=== PATIENT | female | born 1965 | race Caucasian/White ===

== ENCOUNTER 2018-05-30 11:24 | Emergency (ER) | payer OTHER ==
[~2018-05-30] VITALS: Ht 165.1 cm; Wt 64.0 kg
[~2018-05-30 11:24] MED LIST: PROZAC40 MG PO; TRAZADONE HYDR100 MG PO
== END 2018-05-30 11:56 | disposition home or self-care (01) ==
LOC: ED 11:24
DX: Z48.02 Encounter for removal of sutures (principal); R03.0 Elevated blood-pressure reading, without diagnosis of hypertension; Z88.6 Allergy status to analgesic agent; Z79.899 Other long term (current) drug therapy

== ENCOUNTER 2018-06-07 11:21 | Emergency (ER) | payer OTHER ==
[~2018-06-07] VITALS: Ht 162.5 cm; Wt 64.0 kg
[2018-06-07] MEDS ORDERED: WELLBUTRIN XL150 MG PO (11:24)
== END 2018-06-07 11:59 | disposition home or self-care (01) ==
LOC: ED 11:21
DX: Z48.02 Encounter for removal of sutures (principal); F17.200 Nicotine dependence, unspecified, uncomplicated; Z88.6 Allergy status to analgesic agent; Z88.8 Allergy status to other drugs, medicaments and biological substances; Z91.018 Allergy to other foods; Z79.899 Other long term (current) drug therapy

== ENCOUNTER → 2018-08-30 | Outpatient (CLI) | payer OTHER ==
[~2018-08-30] MED LIST changes: +WELLBUTRIN XL150 MG PO
== END | disposition home or self-care (01) ==
LOC: MAMMO 07:20
DX: Z12.31 Encounter for screening mammogram for malignant neoplasm of breast (principal)

== ENCOUNTER 2020-02-04 20:05 | Inpatient (IN) | payer OTHER ==
[2020-02-04] VITALS (7 sets, daily range): BP systolic 75–136; BP diastolic 42–83
[~2020-02-04] VITALS: Ht 162.6 cm; Wt 61.2 kg
[2020-02-04 20:26] LABS: BASO % 0.2 % (0.0-1.0); HEMATOCRIT 40.3 % (37.0-47.0); LYMPH # 2.5 10*3/uL (1.3-4.4); LYMPH % 52.4 % (27.0-41.0); MEAN CELL VOLUME 89.4 fl (81.0-99.0); MEAN CORPUSCULAR HGB 32.2 pg (27.0-31.0); MEAN PLATELET VOLUME 10.1 fl (9.6-12.3); MONO # 0.3 10*3/uL (0.1-1.0); MONO % 6.1 % (3.0-9.0); NEUT # 1.9 10*3/uL (2.3-7.9); NEUT % 41.1 % (47.0-73.0); PLATELET COUNT AUTOMATED 270 10*3/uL (130-400); RED BLOOD COUNT 4.51 10*6/uL (4.10-5.10); RED CELL DISTRI WIDTH 11.9 % (0-14.5); WHITE BLOOD COUNT 4.7 10*3/uL (4.8-10.8)
[2020-02-04 20:37] LABS: ACT PARTIAL THROMBO TIME 24.8 SECONDS (20.0-32.1); INTERNATIONAL NORM RATIO 0.9 (2.0-3.5)
[2020-02-04 20:43] LABS: ALBUMIN 3.8 gm/dl (3.1-4.5); ALKALINE PHOSPHATASE 53 U/L (45-117); BUN 9 mg/dl (7-24); CHLORIDE 99 mmol/L (98-107); SGOT/AST 21 IU/L (3-35); SGPT/ALT 34 U/L (12-78); SODIUM 131 mmol/L (136-145); TOTAL PROTEIN 6.8 gm/dL (6.4-8.2)
[2020-02-04 20:45] LABS: TROPONIN I < 0.015 ng/ml (<0.045)
[2020-02-04] MEDS ORDERED: BUPROPION XL450 MG PO (22:03)
[2020-02-04] MEDS ORDERED: TRAZODONE150 MG PO (22:03)
[2020-02-04] MEDS ORDERED: NEXIUM 24HR20 M2 PO (22:05)
[2020-02-04] MEDS ORDERED: MULTIPLE VITAM1 EAC1 PO (22:06)
[2020-02-05] VITALS: BP 93/60
[2020-02-05 04:00] VITALS: BP 96/73
[2020-02-05 06:04] LABS: ALBUMIN 3.4 gm/dl (3.1-4.5); ALKALINE PHOSPHATASE 48 U/L (45-117); BUN 9 mg/dl (7-24); CHLORIDE 105 mmol/L (98-107); CREATININE 0.53 mg/dL (0.55-1.02); POTASSIUM 4.1 mmol/L (3.5-5.1); SGOT/AST 19 IU/L (3-35); SGPT/ALT 32 U/L (12-78); SODIUM 136 mmol/L (136-145); TOTAL PROTEIN 6.2 gm/dL (6.4-8.2)
[2020-02-05 06:11] LABS: THYROID STIM HORMONE (HS) 0.507 uIU/ml (0.358-4.75)
[2020-02-05 06:27] LABS: HEMATOCRIT 37.7 % (37.0-47.0); LYMPH # 0.5 10*3/uL (1.3-4.4); LYMPH % 9.3 % (27.0-41.0); MEAN CELL VOLUME 90.4 fl (81.0-99.0); MEAN CORPUSCULAR HGB 31.4 pg (27.0-31.0); MEAN CORPUSCULAR HGB CONC 34.7 g/dl (33.0-37.0); MEAN PLATELET VOLUME 10.5 fl (9.6-12.3); MONO % 0.6 % (3.0-9.0); NEUT # 4.6 10*3/uL (2.3-7.9); NEUT % 89.9 % (47.0-73.0); PLATELET COUNT AUTOMATED 238 10*3/uL (130-400); RED BLOOD COUNT 4.17 10*6/uL (4.10-5.10); RED CELL DISTRI WIDTH 11.8 % (0-14.5); WHITE BLOOD COUNT 5.2 10*3/uL (4.8-10.8)
[2020-02-05 06:31] LABS: TROPONIN I 0.879 ng/ml (<0.045)
[2020-02-05 08:00] VITALS: BP 99/72
[2020-02-05 11:53] VITALS: BP 90/72
[2020-02-05 16:00] VITALS: BP 103/61
[2020-02-05 20:00] VITALS: BP 102/68
[2020-02-06] VITALS: BP 100/60
[2020-02-06 04:00] VITALS: BP 90/49
[2020-02-06 06:14] LABS: BASO % 0.2 % (0.0-1.0); EOS % 0.4 % (1.0-4.0); HEMATOCRIT 35.1 % (37.0-47.0); LYMPH # 2.6 10*3/uL (1.3-4.4); LYMPH % 50.2 % (27.0-41.0); MEAN CELL VOLUME 91.2 fl (81.0-99.0); MEAN CORPUSCULAR HGB 31.9 pg (27.0-31.0); MEAN PLATELET VOLUME 10.5 fl (9.6-12.3); MONO # 0.2 10*3/uL (0.1-1.0); MONO % 4.1 % (3.0-9.0); NEUT # 2.3 10*3/uL (2.3-7.9); NEUT % 44.9 % (47.0-73.0); PLATELET COUNT AUTOMATED 208 10*3/uL (130-400); RED BLOOD COUNT 3.85 10*6/uL (4.10-5.10); RED CELL DISTRI WIDTH 11.9 % (0-14.5); WHITE BLOOD COUNT 5.2 10*3/uL (4.8-10.8)
[2020-02-06 06:28] LABS: CHLORIDE 105 mmol/L (98-107); SODIUM 138 mmol/L (136-145)
[2020-02-06 06:32] LABS: BUN 10 mg/dl (7-24); CREATININE 0.52 mg/dL (0.55-1.02)
[2020-02-06 08:00] VITALS: BP 100/56
[2020-02-06 12:00] VITALS: BP 106/63
== END 2020-02-06 17:33 | disposition left against medical advice (07) | DRG 816 ==
LOC: ED 20:05 → EDHOLD 21:20 → ICCU 21:20
PROVIDERS: Emergency Medicine; Internal Medicine; Student in an Organized Health Care Education/Training Program; ADMIT Internal Medicine
PROC: 4A02XM4 Measurement of Cardiac Total Activity, External Approach (ICD-10-PCS; principal; 2020-02-06)
PROC: 3E073KZ Introduction of Other Diagnostic Substance into Coronary Artery, Percutaneous Approach (ICD-10-PCS; 2020-02-06)
DX: T63.481A Toxic effect of venom of other arthropod, accidental (unintentional), initial encounter (principal); I21.4 Non-ST elevation (NSTEMI) myocardial infarction; T78.2XXA Anaphylactic shock, unspecified, initial encounter; E87.1 Hypo-osmolality and hyponatremia; R03.0 Elevated blood-pressure reading, without diagnosis of hypertension; F17.210 Nicotine dependence, cigarettes, uncomplicated; D70.9 Neutropenia, unspecified; F32.9 Major depressive disorder, single episode, unspecified; I95.89 Other hypotension; R00.1 Bradycardia, unspecified; I34.1 Nonrheumatic mitral (valve) prolapse; X58.XXXA Exposure to other specified factors, initial encounter; Z53.29 Procedure and treatment not carried out because of patient's decision for other reasons; Z79.899 Other long term (current) drug therapy; Z71.6 Tobacco abuse counseling; Z88.5 Allergy status to narcotic agent

== ENCOUNTER → 2023-02-28 | Outpatient (CLI) | payer BC ==
[~2023-02-28] MED LIST changes: +BUPROPION XL450 MG PO; +MULTIPLE VITAM1 EAC1 PO; +NEXIUM 24HR20 M2 PO; +TRAZODONE150 MG PO
== END | disposition home or self-care (01) ==
LOC: MAMMO 14:45
PROVIDERS: ATTEND Internal Medicine
DX: Z12.31 Encounter for screening mammogram for malignant neoplasm of breast (principal)